=== PATIENT | male | born 1955 | race Caucasian/White ===

== ENCOUNTER 2016-04-06 10:24 | Emergency (ER) | payer BC ==
[2016-04-06 11:07] VITALS: BP 131/77
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
[2016-04-08 17:20] LABS: HS/VZ Source NOSE; Varicella Zoster Result Negative (Negative); Varicella Zoster Source TIP OF NOSE
== END 2016-04-06 11:28 | disposition home or self-care (01) ==
LOC: UCEAST 10:24
DX: B02.9 Zoster without complications (principal); Z87.891 Personal history of nicotine dependence
CPT/HCPCS: 87070; 87077; 87205; 87529; 87640; 87641; 87798; 99211; G0463

== ENCOUNTER 2016-05-23 07:18 | Emergency (ER) | payer BC ==
[2016-05-23 07:29] VITALS: BP 146/84
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
== END 2016-05-23 08:25 | disposition home or self-care (01) ==
LOC: UCEAST 07:18
DX: H60.92 Unspecified otitis externa, left ear (principal); H66.92 Otitis media, unspecified, left ear; Z87.891 Personal history of nicotine dependence
CPT/HCPCS: 99212; G0463

== ENCOUNTER 2016-05-23 19:23 | Emergency (ER) | payer BC ==
[2016-05-23] MEDS ORDERED: oxyCODONE/Acetamin 5/325 MG* TAB PO ONE ×2 (20:20→20:31)
[2016-05-23 20:46] VITALS: BP 132/78
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
== END 2016-05-23 20:42 | disposition home or self-care (01) ==
LOC: ED 19:23
DX: H60.92 Unspecified otitis externa, left ear (principal); Z87.891 Personal history of nicotine dependence; G89.29 Other chronic pain
CPT/HCPCS: 99282; A9270-GY

== ENCOUNTER 2016-10-18 19:29 | Emergency (ER) | payer BC ==
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
[2016-10-18 22:05] VITALS: BP 140/90
== END 2016-10-18 22:06 | disposition short-term general hospital (02) ==
LOC: UCEAST 19:29
DX: R42 Dizziness and giddiness (principal); R51 Headache; R11.0 Nausea; R26.81 Unsteadiness on feet; F32.9 Major depressive disorder, single episode, unspecified; Z87.891 Personal history of nicotine dependence
CPT/HCPCS: 93005; 99212; G0463

== ENCOUNTER 2016-10-18 22:25 | Emergency (ER) | payer BC ==
[2016-10-19 00:41] VITALS: BP 165/100
== END 2016-10-19 00:36 | disposition left against medical advice (07) ==
LOC: ED 22:25
DX: R42 Dizziness and giddiness (principal); Z53.21 Procedure and treatment not carried out due to patient leaving prior to being seen by health care provider